=== PATIENT | male | born 1965 | race Caucasian/White ===

== ENCOUNTER → 2017-07-14 09:05 | Day surgery (SDC) | payer OTHER, SELFPAY ==
[2017-07-14 09:30] VITALS: BP 120/81; PULSE 65; RESP 16; TEMP 36.6; O2SAT 99; BMI 26.6
[2017-07-14] MEDS: SODIUM CHLORIDE 0.9% 1,000 ML 200 ML IV (09:37)
--- NOTE | 2017-07-14 10:04 | PM.HP.1 ---
History of Present Illness Date Patient Seen: 07/14/17 Time Patient Seen: 10:04 Chief complaint: colonoscopy [id number] Narrative: THE PATIENT IS A GENTLEMAN WHO LAST HAD A COLONOSCOPY 8 YEARS AGO. HIS BROTHER HAD COLON CANCER. HE IS STILL LIVING. HIS PATERNAL GRANDFATHER AND PATERNAL GREAT UNCLE AND A COUSIN ON HIS FATHER'S SIDE ALL OF HAD COLON CANCER. No blood in his stool. No diarrhea or constipation or change in his bowel habits. Patient History Family & Social History Family History: Reviewed 07/14/17 by Flex Peters MD Social History: household members none Meds Home Medications Medication Instructions Recorded Confirmed Type ketoconazole [Nizoral] 1 kenneth TOPICAL 2X/WEEK #120 ml 12/30/15 07/14/17 Rx fluticasone 1 spray INTRANASAL BID #16 gm 02/26/16 07/14/17 Rx cholecalciferol (vitamin D3) 1 tab PO QDAY #0 08/12/16 07/14/17 History [Vitamin D3] Allergies Allergy/AdvReac Type Severity Reaction Status Date / Time No Known Drug Allergies Allergy Verified 07/14/17 09:38 Review of Systems Review of Systems All systems reviewed & are unremarkable except as noted in HPI and below Exam Vital Signs (past 8 hours): Vital Signs - 8 hr 07/14/17 09:30 Temperature 97.8 F Pulse Rate 65 Respiratory Rate 16 Blood Pressure 120/81 H Pulse Oximetry 99 Pulse Oximetry 99 Oxygen Delivery Method Room Air Narrative Exam Narrative: Operative no apparent distress. Lungs are clear. Heart regular rate and rhythm without murmur gallop. Abdomen is soft nontender without mass. Patient is alert and oriented x3. Assessment & Plan Plan: Assessment/Plan Narrative: Patient with a strong family history of colon cancer in a brother, paternal grandfather, paternal great uncle, and cousin on his father side. He is here for screening exam. He is a few years overdue. I have discussed procedure rationale with him. Risks of bleeding, perforation, failure to find removal lesions in the potential tattoo were discussed. He understands perforation would require surgery to repair the opening. All questions were answered.
--- NOTE | 2017-07-14 10:10 | P.HP_ITS ---
History of Present Illness Date Patient Seen: 07/14/17 Time Patient Seen: 10:04 Chief complaint: colonoscopy [id number] Narrative: THE PATIENT IS A GENTLEMAN WHO LAST HAD A COLONOSCOPY 8 YEARS AGO. HIS BROTHER HAD COLON CANCER. HE IS STILL LIVING. HIS PATERNAL GRANDFATHER AND PATERNAL GREAT UNCLE AND A COUSIN ON HIS FATHER'S SIDE ALL OF HAD COLON CANCER. No blood in his stool. No diarrhea or constipation or change in his bowel habits. Patient History Family & Social History Family History: Reviewed 07/14/17 by Flex Peters MD Social History: household members none Meds Home Medications Medication Instructions Recorded Confirmed Type ketoconazole [Nizoral] 1 kenneth TOPICAL 2X/WEEK #120 ml 12/30/15 07/14/17 Rx fluticasone 1 spray INTRANASAL BID #16 gm 02/26/16 07/14/17 Rx cholecalciferol (vitamin D3) 1 tab PO QDAY #0 08/12/16 07/14/17 History [Vitamin D3] Allergies Allergy/AdvReac Type Severity Reaction Status Date / Time No Known Drug Allergies Allergy Verified 07/14/17 09:38 Review of Systems Review of Systems All systems reviewed & are unremarkable except as noted in HPI and below Exam Vital Signs (past 8 hours): Vital Signs - 8 hr 3 07/14/17 09:30 Temperature 97.8 F Pulse Rate 65 Respiratory Rate 16 Blood Pressure 120/81 H Pulse Oximetry 99 Pulse Oximetry 99 Oxygen Delivery Method Room Air Narrative Exam Narrative: Operative no apparent distress. Lungs are clear. Heart regular rate and rhythm without murmur gallop. Abdomen is soft nontender without mass. Patient is alert and oriented x3. Assessment & Plan Plan: Assessment/Plan Narrative: Patient with a strong family history of colon cancer in a brother, paternal grandfather, paternal great uncle, and cousin on his father side. He is here for screening exam. He is a few years overdue. I have discussed procedure rationale with him. Risks of bleeding, perforation, failure to find removal lesions in the potential tattoo were discussed. He understands perforation would require surgery to repair the opening. All questions were answered.
--- NOTE | 2017-07-14 10:10 | PM.PREOP ---
Pre-operative Note Interval Note Pre-op Check: History & Physical exam performed today H&P completed within 30 days and has changed as indicated here:: None ASA Class (for procedural sedation): I
[2017-07-14] MEDS: MIDAZOLAM 5 MG/5 ML VIAL 4 MG IV (10:40)
[2017-07-14] MEDS: fentaNYL 250 MCG/5 ML INJ 200 MCG IV (10:41)
--- NOTE | 2017-07-14 10:57 | PM.OP.ENDO ---
Operative Date/Time/Diagnoses - Date of procedure: 07/14/17 Time of procedure: 10:57 Post-op diagnosis: same (Diverticulosis rare) Procedure & Clinicians Study performed: Colonoscopy Same procedure as scheduled: Yes Indications: Family history of colon cancer Surgeon: Flex Peters Procedure Notes SCOAP/Timeout: Performed Procedure in detail: The patient was placed in the left lateral decubitus position and underwent IV sedation directed by the surgeon consisting of fentanyl and Versed. Digital exam was remarkable for an enlarged symmetric prostate. The scope was inserted and advanced through the rectum into the sigmoid, descending, transverse, and ascending colon. Patient was noted to have a rare diverticulum. The cecum was reached identified by the ileocecal valve and the appendiceal opening. The ileocecal valve was successfully cannulated. The terminal ileum was normal in appearance. The scope was gradually brought out. No Polyps were found. The scope ultimately was retroflexed in the rectum. The appearance was normal. The scope was removed and the patient tolerated the procedure well Scope withdrawal time: 12 min Sedation minutes: 20 Findings: diverticulosis Recommendations: Colonscopy in 5 years and Other recommendation (Consider genetic testing for HNPCC) Plan for aftercare: Repeat colonoscopy in 5 years Follow up: as needed Disposition: PACU
[2017-07-14 11:01] VITALS: BP 117/81; PULSE 60; RESP 16; TEMP 36.8; O2SAT 97
[2017-07-14 11:28] VITALS: BP 121/81; PULSE 62; RESP 15; TEMP 36.7; O2SAT 97
== END | disposition home or self-care (01) ==
PROVIDERS: Family Provider Family Medicine; PCP Family Medicine; Visit Provider Specialist
PROC: 0DJD8ZZ Inspection of Lower Intestinal Tract, Via Natural or Artificial Opening Endoscopic (ICD-10-PCS; CPT 45378; principal; 2017-07-14 09:45)
DX: Z12.11 Encounter for screening for malignant neoplasm of colon (principal); Z80.0 Family history of malignant neoplasm of digestive organs; K57.30 Diverticulosis of large intestine without perforation or abscess without bleeding; N40.0 Benign prostatic hyperplasia without lower urinary tract symptoms
CPT/HCPCS: 45378; 99152; J2250; J3010

== ENCOUNTER → 2018-06-22 11:17 | Outpatient (CLI) | payer OTHER, SELFPAY ==
[2018-06-22 12:43] LABS: Cholesterol 263 mg/dL (140-199); HDL Cholesterol 50 mg/dL (40-60); LDL Cholesterol Calculated 187 mg/dL (<100); Triglycerides 128 mg/dL (35-150)
[2018-06-26 15:19] LABS: Rubeola Measles IgG > 300.00 AU/mL (< 25.00)
== END ==
PROVIDERS: PCP Student in an Organized Health Care Education/Training Program; Visit Provider Student in an Organized Health Care Education/Training Program
DX: E55.9 Vitamin D deficiency, unspecified (principal); E78.2 Mixed hyperlipidemia; Z28.9 Immunization not carried out for unspecified reason
CPT/HCPCS: 36415; 80061; 82306; 86765

== ENCOUNTER → 2018-10-04 16:21 | Outpatient (CLI) | payer OTHER, SELFPAY ==
--- NOTE | 2018-10-04 16:22 | DI.MRI.S_ITS ---
PROCEDURE: MR HEAD/BRAIN WO CON INDICATIONS: exertional/positional headaches TECHNIQUE: Noncontrast axial T1 spin echo, axial T2 fast spin echo, sagittal and axial FLAIR, coronal T2 fast spin echo, axial gradient echo, axial diffusion and ADC through the brain. COMPARISON: None. FINDINGS: Image quality: Excellent. CSF Spaces: Basal cisterns are patent. No extra-axial fluid collections. Ventricles are normal in size and shape. Brain: No intracranial masses or hemorrhage. Rosario/white matter interface is normal. Brainstem appears normal. Diffusion-weighted images demonstrate no acute ischemic insult. No chronic ischemic insults. Normal intravascular flow voids are present. Skull and face: Calvarium has normal marrow signal. Orbits appear normal. Sinuses: There is a mucous retention cyst in within the left maxillary sinus. Mild mucosal thickening can be seen within the ethmoid air cells. The paranasal sinuses are otherwise unremarkable. Mild leftward nasal septal deviation is incidentally noted. No abnormal mastoid air cell fluid can be seen. IMPRESSION: Unremarkable intracranial study, without an imaging explanation found for the patient's presenting history of headache. If there is strong clinical concern for intracranial aneurysm, then please consider a dedicated MR angiogram for further evaluation. Dictated by: Abhi Patel M.D. on 10/04/2018 at 17:49 Approved by: Abhi Patel M.D. on 10/04/2018 at 17:51
== END ==
PROVIDERS: PCP Student in an Organized Health Care Education/Training Program; Visit Provider Family Medicine
DX: G44.84 Primary exertional headache (principal)
CPT/HCPCS: 70551

== ENCOUNTER → 2019-06-06 16:01 | Outpatient (CLI) | payer OTHER, SELFPAY | PROVIDERS: PCP Student in an Organized Health Care Education/Training Program; Referring Provider Student in an Organized Health Care Education/Training Program; Visit Provider Student in an Organized Health Care Education/Training Program | DX: Z20.828 Contact with and (suspected) exposure to other viral communicable diseases (principal) | CPT/HCPCS: 36415 ==

== ENCOUNTER → 2019-08-07 14:01 | Outpatient (CLI) | payer OTHER, SELFPAY ==
[2019-08-07 16:08] LABS: Urine N gonorrhoeae NOT DETECTED
[2019-08-07 16:22] LABS: Urine Chlamydia NOT DETECTED
[2019-08-07 19:54] LABS: HIV 1 & 2 Ab/Ag 4th Gen Combo NEGATIVE (NEGATIVE)
[2019-08-08 06:51] LABS: RPR Screen Non Reactive (Non Reactive)
== END ==
PROVIDERS: PCP Student in an Organized Health Care Education/Training Program; Referring Provider Student in an Organized Health Care Education/Training Program; Visit Provider Student in an Organized Health Care Education/Training Program
DX: Z11.3 Encounter for screening for infections with a predominantly sexual mode of transmission (principal)
CPT/HCPCS: 36415; 86592; 87389; 87491; 87591

== ENCOUNTER → 2019-08-08 19:31 | Outpatient (ROUT) | payer OTHER, SELFPAY | PROVIDERS: PCP Student in an Organized Health Care Education/Training Program; Visit Provider Physician Assistant | DX: R30.0 Dysuria (principal) | CPT/HCPCS: 87086 ==

== ENCOUNTER → 2019-10-11 11:27 | Outpatient (CLI) | payer OTHER, SELFPAY ==
[2019-10-17 14:01] LABS: Percent Free Testosterone 3.95 % (1.50-4.20); Testosterone Free 13.26 ng/dL (5.00-21.00); Testosterone Total 335.8 ng/dL (264.0-916.0)
== END ==
PROVIDERS: PCP Student in an Organized Health Care Education/Training Program; Referring Provider Student in an Organized Health Care Education/Training Program; Visit Provider Student in an Organized Health Care Education/Training Program
DX: R53.83 Other fatigue (principal); R51 Headache
CPT/HCPCS: 36415; 84402; 84403

== ENCOUNTER 2022-10-27 07:42 | Day surgery (SDC) | payer OTHER, SELFPAY ==
[2022-10-27] VITALS (7 sets, daily range): BP systolic 85–121; BP diastolic 54–83; PULSE 63–70; RESP 10–16; TEMP 36.1–36.8; O2SAT 98–100; BMI 25.4
--- NOTE | 2022-10-27 | PATH_ITS ---
[facility] Accession Number: [id number] No. of containers..01 Tissue . 01 Material submitted: . colon - CECAL POLYP . 01 Diagnosis: COLON, CECUM, POLYP BIOPSY: -BENIGN POLYPOID COLONIC MUCOSA,WITH BENIGN LYMPHOID AGGREGATE -NEGATIVE FOR DYSPLASIA OR MALIGNANCY -SEE NOTE --- NOTE: MULTIPLE LEVELS ARE EXAMINED, AND IT IS NEGATIVE FOR DYSPLASIA. TXN 11/02/2022 1418 Local . 01 Electronically signed: . Gladys Gentile MD, Pathologist NPI- [id number] . 01 Gross description: . CECAL POLYP: Received in formalin is 2 fragment(s) of mcclain, soft tissue measuring 0.3 x 0.3 x 0.2 cm to 0.2 x 0.2 x 0.1 cm submitted entirely in 1 cassette(s) /AAY 10/29/2022 2229 Local . 01 Pathologist provided ICD-10: Z12.11 . 01 CPT . 603517 Specimen Comment: A courtesy copy of this report has been sent to [phone] Performed at: 01 [facility] [address] [place] [address], [place], [place] [id number] MD Alan Peterson MD Phone: [phone]
[2022-10-27] MEDS: LACTATED RINGERS 1,000 ML 42 ML IV (07:51)
--- NOTE | 2022-10-27 09:04 | P.HP_ITS ---
History of Present Illness History of Present Illness Date Patient Seen: 10/27/22 Time Patient Seen: 09:05 Chief complaint: SDC Narrative: Ever is a 57-year-old man who is here for colonoscopy. His last 1 was over 5 years ago and did not have polyps at that time. His brother was diagnosed with colon cancer in his 40s. [facility] Medical History (Updated 10/27/22 @ 09:05 by Mike Bhakta MD) Chronic headaches Spine pain (~2011) Surgical History (Updated 03/13/18 @ 21:15 by Caitlyn Flores) History of inguinal hernia repair Family History (Updated 07/14/17 @ 10:07 by Flex Peters MD) Brother Colon cancer Grandfather Colon cancer Social History household members: none Smoking Status: Never smoker alcohol intake: current substance use type: does not use Meds Home Medications and Allergies Home Medications Medication Instructions Recorded Confirmed Type cholecalciferol (vitamin D3) 25 1,000 unit PO DAILY 07/20/18 10/27/22 History mcg (1,000 unit) capsule Allergies Allergy/AdvReac Type Severity Reaction Status Date / Time No Known Drug Allergies Allergy Verified 04/05/19 16:40 Exam Vital Signs (past 8 hours): - 10/27/22 08:11 Temperature 97.4 F L Pulse Rate 70 Respiratory Rate 16 Blood Pressure 119/79 Pulse Oximetry 100 Oxygen Delivery Method Room Air Oxygen Delivery Method Room Air Const General: healthy appearing Assessment & Plan Assessment and plan (1) Family history of colon cancer: Status: Acute Plan We reviewed the risks of colonoscopy for family history of colon cancer and he would like to proceed.
--- NOTE | 2022-10-27 09:45 | PM.OP.COLON ---
Operative Date/Time/Diagnoses Date of procedure: 10/27/22 Time of procedure: 09:45 Pre-op diagnosis: Family history of colon cancer Post-op diagnosis: same Procedure & Clinicians Study performed: Colonoscopy Same procedure as scheduled: Yes Surgeon: Mike Bhakta Procedure Notes Procedure in detail: Surgeon: Mike Bhakta MD Anesthesia: Ashley Kramer CRNA Procedure: The patient was brought to the endoscopy suite, placed in left lateral decubitus position. The patient was connected to monitoring devices. A time-out was performed. Sedation was administered. Once the patient was adequately sedated, a digital rectal exam was performed and was normal. The scope was then inserted and advanced to the cecum where the appendiceal orifice was identified and photographed. The scope was then slowly withdrawn over greater than 6 minutes. The mucosa was thoroughly inspected. There was a 4 mm polyp in the cecum removed with a cold forceps. No other abnormalities were seen throughout the colon. The scope was retroflexed in the rectum. No abnormalities were seen. The scope was straightened and removed. The patient was awakened and brought to recovery. Scope withdrawal time: 13 minutes Sedation time: 16 minutes EBL: 5 mL Findings: 4 mm polyp in the cecum Post-procedure Disposition: PACU
--- NOTE | 2022-10-27 09:54 | SUR.PHASEI ---
Received to PACU after MAC. Report received from FRANCINE Ramirez and Patsy Kong RN.
== END 2022-10-27 10:21 | disposition home or self-care (01) ==
PROVIDERS: PCP Student in an Organized Health Care Education/Training Program; Referring Provider Surgery; Visit Provider Surgery
PROC: 0DJD8ZZ Inspection of Lower Intestinal Tract, Via Natural or Artificial Opening Endoscopic (ICD-10-PCS; CPT 45378; principal; 2022-10-27 08:45)
DX: Z12.11 Encounter for screening for malignant neoplasm of colon (principal); Z80.0 Family history of malignant neoplasm of digestive organs; K63.5 Polyp of colon
CPT/HCPCS: 45380; J2704